=== PATIENT | male | born 2000 | race Caucasian/White ===

== ENCOUNTER 2018-06-09 17:29 | Emergency (ER) | payer SELFPAY ==
[2018-06-09] MEDS: ACETAMINOPHEN 325 MG TAB PO (19:25)
[2018-06-09] MEDS ORDERED: LIDOCAINE 1% (MDV) 20 ML INJ SC (19:30)
[2018-06-09] MEDS: LIDOCAINE 1% (MPF) 5 ML VIAL SC (19:46)
== END 2018-06-09 20:33 | disposition home or self-care (01) ==
LOC: FTE 17:29
DX: L60.0 Ingrowing nail (principal)
CPT/HCPCS: 11765; 99282-25